=== PATIENT | female | born 1970 ===

== ENCOUNTER → 2023-11-19 | Outpatient (CLI) | payer BC ==
[2023-11-19 15:00] VITALS: BP 120/76; PULSE 64; RESP 12; TEMP 98.2
--- NOTE | 2023-11-19 15:34 | P.SLEEP ---
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 The patient has had issues with paroxysmal atrial fibrillation for the past 5 years. Ultimately, the patient ended up having an ablation and since then, the patient has been in normal sinus rhythm. Based on the general manager farm recommendation, the patient came to me for sleep apnea evaluation. The patient lives alone. She is not sure if she snores. She is not sure if she has any apneas throughout the night. Nevertheless, she wakes up once or twice in the middle of the night to urinate. At times she has difficulties in going back to sleep. 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 She spends a lot of time in bed. She goes to bed around 10 PM and sometimes she gets up between 9 and 10 AM in the morning. She is averaging around 6 hours of sleep. She has some difficulties with fatigue and tiredness during the day. Sometimes she wakes up more tired than she was going into sleep. No significant issues memory or concentration and functionality at work is preserved. She takes occasional naps during the day. Her weight has remained stable over the years. No sleepwalking. No sleep talking. No sleep paralysis. No hallucinations. No cataplexy. No symptoms of restless leg syndrome. No substance abuse. She drinks alcohol socially. She drinks 1 cup of coffee in the morning. Months of any motor vehicle accidents because obtaining drowsy or sleepy. Her current Red Oak score is at 6. The patient sleeps in various body positions. She seems to be a nose breather. Review of Systems All systems: negative Eyes: denies as per HPI, denies blurred vision, denies bulging eye, denies decreased vision, denies diplopia, denies discharge, denies dry eye, denies irritation, denies itching, denies pain, denies photophobia, denies loss of peripheral vision, denies loss of vision, denies tunnel vision/blind spots Ears: deny: decreased hearing, ear discharge, earache, tinnitus Ears, nose, mouth and throat: Reports as per HPI Breasts: absent: as per HPI, change in shape, gynecomastia, masses, nipple discharge, pain, skin changes, swelling Cardiovascular: Reports as per HPI, Reports irregular heart beat Respiratory: Reports as per HPI Gastrointestinal: Reports as per HPI Genitourinary: Reports as per HPI Menstruation: Reports as per HPI Musculoskeletal: absent: ankle pain, ankle stiffness, ankle swelling Integumentary: Reports as per HPI Neurological: Reports as per HPI Psychiatric: Reports as per HPI Endocrine: Reports as per HPI Hematologic/Lymphatic: Reports as per HPI Allergic/Immunologic: Reports as per HPI Past Medical History Past Medical History: Atrial Fibrillation History of Any Multi-Drug Resistant Organisms: None Reported Past Surgical History: Cardiac Ablation Additional Past Surgical History / Comment(s): sinus surgery, lasik both eyes Past Psychological History: No Psychological Hx Reported Smoking Status: Never smoker Past Alcohol Use History: Rare Past Drug Use History: None Reported Medications and Allergies Home Medications Medication Instructions Recorded Confirmed Type Venlafaxine HCl [Effexor XR] 37.5 mg PO DAILY 11/19/23 11/19/23 History Physical Exam Vitals: Vital Signs Temp Pulse Resp BP Pulse Ox 11/19/23 14:49 98.2 F 64 12 120/76 100 Intake and Output 11/19/23 11/19/23 11/19/23 06:59 14:59 22:59 Other: Weight 184 kg The patient appeared well nourished and normally developed. Vital signs as documented. Head exam is unremarkable. No scleral icterus or corneal arcus noted. Neck is without jugular venous distension, thyromegaly, or carotid bruits. Carotid upstrokes are brisk bilaterally. Lungs are clear to auscultation and percussion. Mallampati class IV with crowding of the posterior oropharynx. Cardiac exam reveals the PMI to be normally sized and situated. Rhythm is regular. First and second heart sounds normal. No murmurs, rubs or gallops. Abdominal exam reveals normal bowel sounds, no masses, no organomegaly and no ao rtic enlargement. Extremities are nonedematous and both femoral and pedal pulses are normal. Examination of the skin revealed no evidence of significant rashes, suspicious appearing nevi or other concerning lesions. Neurologically, the patient is awake and alert and the patient does not have any focal neurological deficit. Cranial nerves are essentially intact. Assessment and Plan Plan: Paroxysmal atrial fibrillation, post ablation and the patient's current cardiac rhythm is sinus. Concern for obstructive sleep apnea and the patient has some limited fatigue and sleepiness during the day with an Red Oak score of 6. No recent weight gain. Body mass index is 30.6. She does have Mallampati class IV with crowding in the posterior pharynx. Red Oak score of 6 consistent with mild hypersomnia. Body mass index of 30.6 Plan The patient will need further investigation. I do not have a very high clinical suspicion for obstructive sleep apnea. However this cannot be completely ruled out. Will encourage the patient to lose weight. Limit number of hours spent in bed to improve the overall sleep efficiency. The patient needs to focus on lo sing weight. Proceed with a polysomnography to rule out underlying obstructive sleep apnea. Will make further recommendations once the results of the sleep study are available. Sleep Note - Sleep Data ESS Total: 6 - Sleep Note Sleep Note: Temperature: 98.2 F Pulse Rate: 64 Respiratory Rate: 12 Blood Pressure: 120/76 SpO2: 100 Height: 5 ft 5 in Weight: 184 kg BMI: Neck Circumference: 14
== END ==
LOC: 3 N SLEEP 14:17
PROVIDERS: ATTEND Internal Medicine Critical Care Medicine
DX: G47.33 Obstructive sleep apnea (adult) (pediatric) (principal); I48.91 Unspecified atrial fibrillation; G47.10 Hypersomnia, unspecified; Z68.30 Body mass index [BMI] 30.0-30.9, adult
CPT/HCPCS: 99202

== ENCOUNTER 2023-12-16 19:57 | Outpatient (CLI) | payer BC | END 2023-12-17 05:42 | disposition home or self-care (01) | LOC: 3 N SLEEP 19:57 | PROVIDERS: ATTEND Internal Medicine Critical Care Medicine | DX: G47.33 Obstructive sleep apnea (adult) (pediatric) (principal); G47.10 Hypersomnia, unspecified; I48.0 Paroxysmal atrial fibrillation | CPT/HCPCS: 95810 ==